=== PATIENT | female | born 1995 | race Caucasian/White ===

== ENCOUNTER 2019-04-09 06:17 | Day surgery (SDC) | payer OTHER ==
[2019-04-09] MEDS ORDERED: CEFAZOLIN 2 GM/50 ML (PMX) 50 ML IVPB (06:30)
[2019-04-09] MEDS ORDERED: MIDAZOLAM 1 MG/ML 2 ML INJ ×2 (08:39→08:40)
[2019-04-09] MEDS ORDERED: FENTAnyl 50 MCG/ML VIAL ×2 (08:40→08:59)
[2019-04-09] MEDS ORDERED: KETOROLAC 30 MG INJ (08:40)
[2019-04-09] MEDS ORDERED: CEFAZOLIN 1 GM INJ (08:41)
[2019-04-09] MEDS ORDERED: BUPIVACAINE 0.5% (SDV) 30 ML INJ (08:50)
[2019-04-09] MEDS ORDERED: HYDROmorphONE 1 MG/5 ML IV SYRINGE IV ×3 (09:00)
[2019-04-09] MEDS ORDERED: PROPOFOL 20 ML (09:09)
[2019-04-09] MEDS ORDERED: LIDOCAINE 1% (MDV) 20 ML INJ (09:09)
[2019-04-09] MEDS: LIDOCAINE 2% (MDV) 20 ML INJ (09:10)
[2019-04-09] MEDS: BUPIVACAINE 0.25% (MPF) 30 ML INJ (09:10)
[2019-04-09] MEDS ORDERED: HYDROCODONE/APAP (5/325) TAB PO (09:30)
[2019-04-09] MEDS: SOD CHLORIDE 0.9% 1,000 ML IV (09:34)
== END 2019-04-09 10:51 | disposition home or self-care (01) ==
LOC: SDS 06:17
DX: L72.0 Epidermal cyst (principal)
CPT/HCPCS: 14001; 84703; 88307